=== PATIENT | female | born 1980 | race Caucasian/White ===

== ENCOUNTER 2019-05-25 06:51 | Day surgery (SDC) | payer OTHER ==
[~2019-05-25 06:51] MED LIST: Lactated Ringers 1,000 ML IV SCH; Lidocaine 1%/Sod Bicarbonate in NS 8.4% 1 ML Syringe IDERM PRN; Sodium Chloride 0.9% 10 ML Syringe FLUSH PRN
[2019-05-25] MEDS ORDERED: Ondansetron 4 MG/2 ML SDV ONE (07:10)
[2019-05-25] MEDS ORDERED: Midazolam 1 MG/ML 2 ML SDV ONE (07:11)
[2019-05-25] MEDS ORDERED: Lidocaine 1% 4 ML ONE (07:11)
[2019-05-25] MEDS ORDERED: Propofol 200 MG/20 ML SDV ONE (07:11)
[2019-05-25] MEDS ORDERED: fentaNYL 250 MCG/5 ML SDV ONE (07:11)
[2019-05-25] MEDS ORDERED: Rocuronium 100 MG/10 ML MDV ONE (07:12)
[2019-05-25] MEDS ORDERED: ceFAZolin 1 GM Vial ONE (07:14)
--- NOTE | 2019-05-25 07:28 | PCM.PREANE ---
Preanesthetic Assessment - Procedure Proposed Procedure: hysteroscopy ablation - Anesthesia/Transfusion/Family Hx Anesthesia History: Prior Anesthesia Reaction (nausea, itching) Family History of Anesthesia Reaction: No Transfusion History: No Prior Transfusion(s) - Review of Systems General: No Symptoms Pulmonary: No Symptoms Cardiovascular: No Symptoms Gastrointestinal: No Symptoms Neurological: No Symptoms Other: Reports: None - Physical Assessment NPO Status Date: 05/24/19 NPO Status Time: 00:00 ASA Class: 2 Mental Status: Alert & Oriented x3 Dentition: Reports: Normal Dentition Thyro-Mental Finger Breadths: 3 Mouth Opening Finger Breadths: 3 ROM/Head Extension: Full Lungs: Clear to Auscultation, Normal Respiratory Effort, Decreased Breath Sounds Cardiovascular: Regular Rate, Regular Rhythm - Lab Values: Laboratory Last Values WBC 12.41 K/mm3 (3.98-10.04) H 05/07/19 12:20 RBC 4.80 M/mm3 (3.98-5.22) 05/07/19 12:20 Hgb 11.8 gm/dl (11.2-15.7) D 05/07/19 12:20 Hct 37.5 % (34.1-44.9) 05/07/19 12:20 MCV 78.1 fl (79.4-94.8) L D 05/07/19 12:20 MCH 24.6 pg (25.6-32.2) L 05/07/19 12:20 MCHC 31.5 g/dl (32.2-35.5) L 05/07/19 12:20 RDW Std Deviation 46.8 fL (36.4-46.3) H 05/07/19 12:20 Plt Count 377 K/mm3 (182-369) H D 05/07/19 12:20 MPV 9.9 fl (9.4-12.3) 05/07/19 12:20 Neut % (Auto) 57.0 % (34.0-71.1) 05/07/19 12:20 Lymph % (Auto) 33.8 % (19.3-51.7) 05/07/19 12:20 [place] % (Auto) 6.6 % (4.7-12.5) 05/07/19 12:20 Eos % (Auto) 1.9 (0.7-5.8) 05/07/19 12:20 Baso % (Auto) 0.5 % (0.1-1.2) 05/07/19 12:20 Neut # (Auto) 7.09 K/mm3 (1.56-6.13) H 05/07/19 12:20 Lymph # (Auto) 4.19 K/mm3 (1.18-3.74) H 05/07/19 12:20 [place] # (Auto) 0.82 K/mm3 (0.24-0.36) H 05/07/19 12:20 Eos # (Auto) 0.23 K/mm3 (0.04-0.36) 05/07/19 12:20 Baso # (Auto) 0.06 K/mm3 (0.01-0.08) 05/07/19 12:20 Urine Color Yellow (Yellow) 05/07/19 12:20 Urine Appearance Clear (Clear) 05/07/19 12:20 Urine pH 5.5 (5.0-8.0) 05/07/19 12:20 Ur Specific [place] > or = 1.030 (1.005-1.030) 05/07/19 12:20 Urine Protein 1+ (Negative) H 05/07/19 12:20 Urine Glucose (UA) Negative (Negative) 05/07/19 12:20 Urine Ketones Negative (Negative) 05/07/19 12:20 Urine Occult Blood 3+ (Negative) H 05/07/19 12:20 Urine Nitrite Negative (Negative) 05/07/19 12:20 Urine Bilirubin Negative (Negative) 05/07/19 12:20 Urine Urobilinogen 0.2 (0.2-1.0) 05/07/19 12:20 Ur Leukocyte Esterase Trace (Negative) H 05/07/19 12:20 Urine RBC 40-50 /hpf (0-5) H 05/07/19 12:20 Urine WBC 5-10 /hpf (0-5) H 05/07/19 12:20 Ur Squamous Epith Cells 0-5 /hpf (0-5) 05/07/19 12:20 Urine Bacteria Moderate /hpf (FEW) H 05/07/19 12:20 Urine Mucus Rare /hpf (FEW) 05/07/19 12:20 - Allergies Allergies/Adverse Reactions: Allergies Allergy/AdvReac Type Severity Reaction Status Date / Time No Known Allergies Allergy Verified 05/24/19 12:36 - Anesthesia Plan Pre-Op Medication Ordered: None - Acknowledgements Anesthesia Type Planned: General Anesthesia Pt an Appropriate Candidate for the Planned Anesthesia: Yes Alternatives and Risks of Anesthesia Discussed w Pt/Guardian: Yes Pt/Guardian Understands and Agrees with Anesthesia Plan: Yes PreAnesthesia Questionnaire HEENT History: Reports: Glaucoma, Impaired Vision Cardiovascular History: Reports: Blood Clots/VTE/DVT Respiratory History: Reports: None Gastrointestinal History: Reports: None Genitourinary History: Reports: None 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 Neurological History: Reports: None Psychiatric History: Reports: Depression Endocrine/Metabolic History: Reports: None 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: Bleeding Disorder Immunologic History: Reports: None Oncologic (Cancer) History: Reports: None Dermatologic History: Reports: None - Past Surgical History Head Surgeries/Procedures: Reports: None HEENT Surgical History: Reports: Eye Surgery, Tonsillectomy Cardiovascular Surgical History: Reports: None Respiratory Surgical History: Reports: None GI Surgical History: Reports: None Female Surgical History: Reports: Section, Tubal Ligation Male Surgical History: Reports: None Endocrine Surgical History: Reports: None Neurological Surgical History: Reports: None Musculoskeletal Surgical History: Reports: Other (See Below) Other Musculoskeletal Surgeries/Procedures:: foto surgery Oncologic Surgical History: Reports: None Dermatological Surgical History: Reports: None - SUBSTANCE USE Smoking Status *Q: Never Smoker Tobacco Use Within Last Twelve Months: No Second Hand Smoke Exposure: No Days Per Week of Alcohol Use: 0 Number of Drinks Per Day: 0 Total Drinks Per Week: 0 Recreational Drug Use History: No - HOME MEDS Home Medications: Home Meds Ibuprofen [Ibuprofen Ib] 200 - 600 mg PO Q6H PRN 05/24/19 [History] - CURRENT (IN HOUSE) MEDS Current Meds: Current Medications Lactated Ringer's (Ringers, Lactated) 1,000 mls @ 125 mls/hr IV ASDIRECTED CHANTE Stop: 05/25/19 23:00 Lidocaine/Sodium Bicarbonate (Buffered Lidocaine 1% In Ns 8.4%) 0.25 ml IDERM ONETIME PRN PRN Reason: Prior to IV Start Stop: 05/25/19 23:00 Sodium Chloride (Saline Flush) 10 ml FLUSH ASDIRECTED PRN PRN Reason: Keep Vein Open Stop: 05/25/19 23:00 Discontinued Medications Cefazolin Sodium (Ancef) Confirm Administered Dose 2 gm .ROUTE .STK-MED ONE Stop: 05/25/19 07:15 Fentanyl (Sublimaze) Confirm Administered Dose 250 mcg .ROUTE .STK-MED ONE Stop: 05/25/19 07:12 Lidocaine HCl (Xylocaine-Mpf 1%) Confirm Administered Dose 4 mls @ as directed .ROUTE .STK-MED ONE Stop: 05/25/19 07:12 Midazolam HCl (Versed 1 Mg/Ml) Confirm Administered Dose 2 mg .ROUTE .STK-MED ONE Stop: 05/25/19 07:12 Ondansetron HCl (Zofran) Confirm Administered Dose 4 mg .ROUTE .STK-MED ONE Stop: 05/25/19 07:11 Propofol (Diprivan 20 Ml) Confirm Administered Dose 200 mg .ROUTE .STK-MED ONE Stop: 05/25/19 07:12 Rocuronium [place] (Zemuron) Confirm Administered Dose 100 mg .ROUTE .STK-MED ONE Stop: 05/25/19 07:13
[2019-05-25] MEDS ORDERED: Scopolamine 1.5 MG Transdermal Patch TRDERM SCH (07:30)
[2019-05-25] MEDS ORDERED: Ketorolac 30 MG/ML SDV ONE (07:52)
[2019-05-25] MEDS ORDERED: Dexamethasone 4 MG/ML 5 ML MDV ONE (07:52)
[2019-05-25] MEDS ORDERED: Lactated Ringers 1,000 ML ONE (08:14)
[2019-05-25] MEDS ORDERED: Ondansetron 4 MG/2 ML SDV IVPUSH PRN (08:39)
--- NOTE | 2019-05-25 10:16 | PCM.OPNOTE ---
- General Post-Op/Procedure Note Date of Surgery/Procedure: 05/25/19 Operative Procedure(s): Hysteroscopy, D&C, NovaSure endometrial ablation Findings: Uterine cavity sounded to 10-1/2 cm. Width was 4.0 cm. No abnormalities of significance are noted in the endometrial cavity. No Adnexal abnormalities noted. Pre Op Diagnosis: Abnormal uterine bleeding Post-Op Diagnosis: Same Anesthesia Technique: General ET Tube Primary Surgeon: Josh Garcia Pathology: Endometrial curettings Fluid Replacement, Intraop: 1,000 EBL in mLs: 5 Complications: None Condition: Good Free Text/Narrative:: Intake & Output 05/24/19 05/25/19 05/25/19 22:59 06:59 14:59 Intake Total 300 Balance 300 Surgery duration: 13 minutes Procedure: Patient was instructed as to procedure, its risks, benefits, limitations and follow-up and had signed a consent for surgery. The patient is taken the operative placed in a supine position on the operating table. She received 2 g of Ancef preoperatively for infection prophylaxis and had sequential compression stockings in place for DVT prophylaxis. Patient was given general trach anesthesia. She is placed in a dorsal lithotomy position and prepped and draped in usual fashion. An exam under anesthesia was performed. Findings as described above. A weighted speculum was placed in the vagina. Cervix is visualized. It was grasped anteriorly with a single-tooth tenaculum. Uterus was then sounded to a depth of 10.5 cm. The cervix was dilated to allow passage of a 5 mm 12 rigid hysteroscope. This was placed without problem and normal saline was used as a distending medium. The endometrial cavity was visualized. Findings as described above. A D&C was performed. Moderate amount tissue was obtained. Minimal bleeding was encountered. Endometrial ablation was then performed. Should be noted consent was appropriately signed by the patient prior to the procedure. The cervix was dilated to allow placement of the NovaSure endometrial apparatus. Uterine cavity was 10.5 cm in length including 3 cm cervix. Width was 4.0 cm. Therapy last 1 minute and 21 seconds. Power was 143 W. Hysteroscope was then placed back into the endometrial cavity. Blood was flushed out and the findings were consistent with a cauterized endometrial cavity. At this point the scope was removed. The vagina was cleared of old blood , the cervix was released and the weighted speculum was removed. Patient was returned to supine position and awakened from general anesthesia. She tolerated the procedure well and operating room in good condition.
[2019-05-25 13:00] VITALS: BP 110/62; PULSE 71
--- NOTE | 2019-05-25 13:08 | PCM48HPAN ---
Post Anesthesia Note - EVALUATION WITHIN 48HRS OF ANESTHETIC Vital Signs in Normal Range: Yes Patient Participated in Evaluation: Yes Respiratory Function Stable: Yes Airway Patent: Yes Cardiovascular Function Stable: Yes Hydration Status Stable: Yes Pain Control Satisfactory: Yes Nausea and Vomiting Control Satisfactory: Yes Mental Status Recovered: Yes Vital Signs: Last Vital Signs Temp 36.9 C 05/25/19 10:35 Pulse 71 05/25/19 10:35 Resp 16 05/25/19 10:35 BP 110/62 05/25/19 10:35 Pulse Ox 96 05/25/19 10:35 - COMMENTS/OBSERVATIONS Free Text/Narrative:: no anesthesia complications noted
--- NOTE | 2019-05-25 13:10 | PCM.POSTAN ---
POST ANESTHESIA ASSESSMENT - MENTAL STATUS Mental Status: Alert, Oriented - VITAL SIGNS Vital Signs: Last Vital Signs Temp 36.9 C 05/25/19 10:35 Pulse 71 05/25/19 10:35 Resp 16 05/25/19 10:35 BP 110/62 05/25/19 10:35 Pulse Ox 96 05/25/19 10:35 - RESPIRATORY Respiratory Status: Respiratory Rate WNL, Airway Patent, O2 Saturation Stable, Supplemental Oxygen - CARDIOVASCULAR CV Status: Pulse Rate WNL, Blood Pressure Stable - GASTROINTESTINAL GI Status: No Symptoms - PAIN Pain Score: 0 - POST OP HYDRATION Hydration Status: Adequate & Stable - OBSERVATIONS Free Text/Narrative:: no anesthesia complications noted
[2019-05-25] MEDS ORDERED: Ketorolac 30 MG/ML SDV IVPUSH SCH (14:00)
[2019-05-28] MEDS ORDERED: [UNRECOGNIZED DRUG - REMARK] TRDERM SCH (07:45)
== END 2019-05-25 11:02 | disposition home or self-care (01) ==
LOC: JD.SDS 06:51
PROVIDERS: ATTEND Obstetrics & Gynecology
DX: N93.9 Abnormal uterine and vaginal bleeding, unspecified (principal); I10 Essential (primary) hypertension; F32.9 Major depressive disorder, single episode, unspecified; Z98.51 Tubal ligation status; Z87.891 Personal history of nicotine dependence
CPT/HCPCS: 36415; 58563; 81001; 81025; 85025; 87086; A9270; J0690; J1100; J1885; J2001; J2250; J2405; J2704; J3010; J7120; 00952

== ENCOUNTER 2021-01-07 11:08 | Emergency (ER) | payer OTHER ==
[2021-01-07 11:33] VITALS: BP 139/96; PULSE 92
[2021-01-07] MEDS ORDERED: Ketorolac 30 MG/ML SDV IVPUSH ONE (11:55)
[2021-01-07] MEDS ORDERED: Sodium Chloride 0.9% 10 ML Syringe FLUSH PRN (11:55)
[2021-01-07] MEDS ORDERED: Sodium Chloride 0.9% 1,000 ML IV STA (11:55)
--- NOTE | 2021-01-07 11:56 | EDM.PDOC ---
ED HPI GENERAL MEDICAL PROBLEM - General Chief Complaint: General Stated Complaint: BODY PAINS HEADACHE FEVER Time Seen by Provider: 01/07/21 11:22 Source of Information: Reports: Patient, RN Notes Reviewed History Limitations: Reports: No Limitations - History of Present Illness INITIAL COMMENTS - FREE TEXT/NARRATIVE: Patient is a 40-year-old female presenting to the emergency department with complaints of generalized body aches, fever, chills, nasal congestion, ear pressure, sore throat, headache, and decreased appetite. Reports symptoms began on Friday with just cough, congestion, and sore throat. she developed body aches and headaches have continued since that time. T-max on Friday was 104.9. States she had 103 temperature this morning but took Tylenol or ibuprofen about 2 hours prior to coming to ER. She was seen at the [facility] walk[facility]in [facility] yesterday and had Covid testing done which was found to be negative. She reports that she has been under a significant amount of stress lately and that when she is stressed, she tends to get sick. She denies any vomiting, diarrhea, dysuria, or flank pain. She has no chest pain, cough, or shortness of breath. 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 Neurological History: Reports: None Psychiatric History: Reports: Anxiety, Depression, Panic Attack Endocrine/Metabolic History: Reports: Obesity/BMI 30+ 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: Bleeding Disorder Immunologic History: Reports: None Oncologic (Cancer) History: Reports: None Dermatologic History: Reports: None - Past Surgical History HEENT Surgical History: Reports: Eye Surgery, Tonsillectomy Cardiovascular Surgical History: Reports: None Respiratory Surgical History: Reports: None Female Surgical History: Reports: Section, Tubal Ligation Musculoskeletal Surgical History: Reports: Other (See Below) Other Musculoskeletal Surgeries/Procedures:: foto surgery Social & Family History - Tobacco Use Tobacco Use Status *Q: Never Tobacco User Second Hand Smoke Exposure: No - Caffeine Use Caffeine Use: Reports: Coffee, Soda - Recreational Drug Use Recreational Drug Use: No ED ROS GENERAL - Review of Systems Review Of Systems: Comprehensive ROS is negative, except as noted in HPI. ED EXAM, GENERAL - Physical Exam Exam: See Below Exam Limited By: No Limitations General Appearance: Alert, WD/WN, No Apparent Distress Eye Exam: Bilateral Eye: PERRL Ears: Normal External Exam, Normal Canal, Hearing Grossly Normal, Normal TMs Throat/Mouth: Normal Inspection, Normal Lips, Normal Teeth, Normal Gums, Normal Oropharynx, Normal Voice, No Airway Compromise Respiratory/Chest: No Respiratory Distress, Lungs Clear, Normal Breath Sounds, No Accessory Muscle Use, Chest Non-Tender Cardiovascular: Normal Peripheral Pulses, Regular Rate, Rhythm, No Edema, No Gallop, No JVD, No Murmur, No Rub GI/Abdominal: Normal Bowel Sounds, Soft, Non-Tender, No Organomegaly, No Distention, No Abnormal Bruit, No Mass Neurological: Alert, Oriented, CN II-XII Intact, Normal Cognition, Normal Gait, Normal Reflexes, No Motor/Sensory Deficits Psychiatric: Normal Affect, Normal Mood Skin Exam: Warm, Dry, Intact, Normal Color, No Rash Course - Vital Signs Last Recorded V/S: Last Vital Signs Temp 97.1 F 01/07/21 11:30 Pulse 92 01/07/21 11:30 Resp 18 01/07/21 11:30 BP 139/96 H 01/07/21 11:30 Pulse Ox 99 01/07/21 11:30 - Orders/Labs/Meds Orders: Active Orders 24 hr Category Date Time Status CULTURE URINE [MREF] Stat Lab 01/07/21 14:00 Received Peripheral IV Insertion Adult [OM.PC] Stat Oth 01/07/21 11:55 Ordered Labs: Laboratory Tests 01/07/21 01/07/21 01/07/21 Range/Units 12:15 12:15 12:15 WBC 11.27 H (3.98-10.04) K/mm3 RBC 5.03 (3.98-5.22) M/mm3 Hgb 14.7 D (11.2-15.7) gm/dl Hct 44.3 (34.1-44.9) % MCV 88.1 D (79.4-94.8) fl MCH 29.2 (25.6-32.2) pg MCHC 33.2 (32.2-35.5) g/dl RDW Std Deviation 44.0 (36.4-46.3) fL Plt Count 259 D (182-369) K/mm3 MPV 9.9 (9.4-12.3) fl Neut % (Auto) 70.5 (34.0-71.1) % Lymph % (Auto) 21.3 (19.3-51.7) % [place] % (Auto) 7.7 (4.7-12.5) % Eos % (Auto) 0 L (0.7-5.8) Baso % (Auto) 0.3 (0.1-1.2) % Neut # (Auto) 7.95 H (1.56-6.13) K/mm3 Lymph # (Auto) 2.40 (1.18-3.74) K/mm3 [place] # (Auto) 0.87 H (0.24-0.36) K/mm3 Eos # (Auto) 0.00 L (0.04-0.36) K/mm3 Baso # (Auto) 0.03 (0.01-0.08) K/mm3 Sodium 139 (136-145) mEq/L Potassium 4.1 (3.5-5.1) mEq/L Chloride 104 (98-107) mEq/L Carbon Dioxide 25 (21-32) mEq/L Anion Gap 14.1 (5-15) BUN 17 (7-18) mg/dL Creatinine 0.7 (0.55-1.02) mg/dL Est Cr Clr Drug Dosing 97.09 mL/min Estimated GFR (MDRD) > 60 (>60) mL/min BUN/Creatinine Ratio 24.3 H (14-18) Glucose 105 H (70-99) mg/dL Calcium 8.7 (8.5-10.1) mg/dL Total Bilirubin 0.3 (0.2-1.0) mg/dL AST 11 L (15-37) U/L ALT 11 L (14-59) U/L Alkaline Phosphatase 66 (46-116) U/L Total Protein 7.5 (6.4-8.2) g/dl Albumin 3.0 L (3.4-5.0) g/dl Globulin 4.5 gm/dL Albumin/Globulin Ratio 0.7 L (1-2) Urine Color (Yellow) Urine Appearance (Clear) Urine pH (5.0-8.0) Ur Specific [place] (1.005-1.030) Urine Protein (Negative) Urine Glucose (UA) (Negative) Urine Ketones (Negative) Urine Occult Blood (Negative) Urine Nitrite (Negative) Urine Bilirubin (Negative) Urine Urobilinogen (0.2-1.0) Ur Leukocyte Esterase (Negative) Urine RBC (0-5) /hpf Urine WBC (0-5) /hpf Ur Squamous Epith Cells (0-5) /hpf Urine Bacteria (FEW) /hpf Urine Mucus (FEW) /hpf SARS-CoV-2 RNA (NADER) Negative (NEGATIVE) 01/07/21 Range/Units 14:00 WBC (3.98-10.04) K/mm3 RBC (3.98-5.22) M/mm3 Hgb (11.2-15.7) gm/dl Hct (34.1-44.9) % MCV (79.4-94.8) fl MCH (25.6-32.2) pg MCHC (32.2-35.5) g/dl RDW Std Deviation (36.4-46.3) fL Plt Count (182-369) K/mm3 MPV (9.4-12.3) fl Neut % (Auto) (34.0-71.1) % Lymph % (Auto) (19.3-51.7) % [place] % (Auto) (4.7-12.5) % Eos % (Auto) (0.7-5.8) Baso % (Auto) (0.1-1.2) % Neut # (Auto) (1.56-6.13) K/mm3 Lymph # (Auto) (1.18-3.74) K/mm3 [place] # (Auto) (0.24-0.36) K/mm3 Eos # (Auto) (0.04-0.36) K/mm3 Baso # (Auto) (0.01-0.08) K/mm3 Sodium (136-145) mEq/L Potassium (3.5-5.1) mEq/L Chloride (98-107) mEq/L Carbon Dioxide (21-32) mEq/L Anion Gap (5-15) BUN (7-18) mg/dL Creatinine (0.55-1.02) mg/dL Est Cr Clr Drug Dosing mL/min Estimated GFR (MDRD) (>60) mL/min BUN/Creatinine Ratio (14-18) Glucose (70-99) mg/dL Calcium (8.5-10.1) mg/dL Total Bilirubin (0.2-1.0) mg/dL AST (15-37) U/L ALT (14-59) U/L Alkaline Phosphatase (46-116) U/L Total Protein (6.4-8.2) g/dl Albumin (3.4-5.0) g/dl Globulin gm/dL Albumin/Globulin Ratio (1-2) Urine Color Yellow (Yellow) Urine Appearance Cloudy H (Clear) Urine pH 6.5 (5.0-8.0) Ur Specific [place] 1.020 (1.005-1.030) Urine Protein 1+ H (Negative) Urine Glucose (UA) Negative (Negative) Urine Ketones Negative (Negative) Urine Occult Blood 3+ H (Negative) Urine Nitrite Negative (Negative) Urine Bilirubin Negative (Negative) Urine Urobilinogen 1.0 (0.2-1.0) Ur Leukocyte Esterase 2+ H (Negative) Urine RBC 20-30 H (0-5) /hpf Urine WBC 50-75 H (0-5) /hpf Ur Squamous Epith Cells 5-10 H (0-5) /hpf Urine Bacteria Many H (FEW) /hpf Urine Mucus Few (FEW) /hpf SARS-CoV-2 RNA (NADER) (NEGATIVE) Meds: Medications Discontinued Medications Generic Name Dose Route Start Last Admin Trade Name Freq PRN Reason Stop Dose Admin Cefdinir 300 mg 01/07/21 14:46 01/07/21 15:11 Cefdinir 300 Mg Cap PO 01/07/21 14:47 300 mg ONETIME ONE Administration Sodium Chloride 1,000 mls @ 999 mls/hr 01/07/21 11:55 01/07/21 12:19 Normal Saline IV 01/07/21 12:55 999 mls/hr NOW STA Administration Ketorolac Tromethamine 30 mg 01/07/21 11:55 01/07/21 12:19 Ketorolac 30 Mg/Ml Sdv IVPUSH 01/07/21 11:56 30 mg ONETIME ONE Administration Sodium Chloride 10 ml 01/07/21 11:55 01/07/21 12:19 Sodium Chloride 0.9% 10 Ml Syringe FLUSH 10 ml ASDIRECTED PRN Administration Keep Vein Open - Re-Assessments/Exams Free Text/Narrative Re-Assessment/Exam: 01/07/21 14:45 Hematology significant for WBC slightly elevated 11.27. Is otherwise unremarkable. Urinalysis shows 3+ occult blood, 2+ leukocyte esterase, 20-30 RBCs, 50-75 WBCs with many bacteria. Patient is currently menstruating, so this likely is the cause of some of the blood in her urine. It is however grossly positive for urinary tract infection. Chest x-ray shows no evidence of pneumonia. Patient will be treated with cefdinir for urinary tract infection. I will give first dose here today and send prescription for remaining doses. She does not feel like she needs anything for nausea. Discussed return precautions. Discharge instructions as documented. Departure - Departure Time of Disposition: 14:45 Disposition: Home, Self-Care 01 Condition: Good Clinical Impression: UTI, Urinary tract infectious disease, Viral illness - Discharge Information *PRESCRIPTION DRUG MONITORING PROGRAM REVIEWED*: No *COPY OF PRESCRIPTION DRUG MONITORING REPORT IN PATIENT ESPERANZA: No Prescriptions: Cefdinir [Omnicef] 300 mg PO BID #19 cap Instructions: Urinary Tract Infection, Adult, Viral Illness, Adult Referrals: Hasn Oakley MD [Primary Care Provider] - Forms: ED Department Discharge Additional Instructions: You were seen in the emergency department today for headache, body aches, fever, nasal congestion, sore throat, and ear pressure. Work-up included blood work, urinalysis, chest x-ray, and Covid test. Results of your blood work were overall normal. Covid test was negative. Urinalysis did show that you have a urinary tract infection. Chest x-ray showed no evidence pneumonia. While in the ER, you received IV fluids and a dose of Toradol. You also received your first dose of Omnicef which is an antibiotic. Prescription for this [facility] been [facility]. Take this medication as prescribed. Recommend increased fluid intake as well as Tylenol and ibuprofen as needed for discomfort. Symptoms should improve over the course of the next 48 hours. If you should experience any new or worsening symptoms, please do not hesitate to return to the emergency department for reevaluation. Sepsis Event Note (ED) - Focused Exam Vital Signs: Vital Signs Temp Pulse Resp BP Pulse Ox 01/07/21 11:30 97.1 F 92 18 139/96 H 99 - My Orders Last 24 Hours: My Active Orders 01/07/21 11:55 Peripheral IV Insertion Adult [OM.PC] Stat 01/07/21 14:00 CULTURE URINE [MREF] Stat - Assessment/Plan Last 24 Hours: My Active Orders 01/07/21 11:55 Peripheral IV Insertion Adult [OM.PC] Stat 01/07/21 14:00 CULTURE URINE [MREF] Stat
[2021-01-07] MEDS ORDERED: Cefdinir 300 MG Cap PO ONE (14:46)
--- NOTE | 2021-01-07 19:09 | CR ---
Chest: PA and lateral views of the chest were obtained. Comparison: No prior chest imaging is available. Heart size and mediastinum are normal. Lungs are clear with no acute parenchymal change. Bony structures appear within normal limits for the patient's age. Impression: 1. Nothing acute is seen on 2 view chest x-ray. Diagnostic code #1
== END 2021-01-07 15:14 | disposition home or self-care (01) ==
LOC: JD.ED 11:08
DX: B34.9 Viral infection, unspecified (principal); N39.0 Urinary tract infection, site not specified; D72.829 Elevated white blood cell count, unspecified; E66.9 Obesity, unspecified; Z68.36 Body mass index [BMI] 36.0-36.9, adult; Z20.822 Contact with and (suspected) exposure to COVID-19
CPT/HCPCS: 36415; 71046; 80053; 81001; 85025; 87086; 87635; 96374; 99284; A9270; J1885; J7030; 99283; U0002